=== PATIENT | female | born 1955 | race Caucasian/White ===

== ENCOUNTER 2017-07-10 11:04 | Observation (INO) | payer BC ==
[~2017-07-10] VITALS: Ht 172.7 cm; Wt 52.6 kg
[~2017-07-10 11:04] MED LIST: ANTIDEPRESSANT PO; DEPO-MEDROL80 MG/ML IM; NAPROXEN500 MG PO; PAXIL40 MG PO; PERCOCET 5/325M1 TAB PO; PROAIR HFA IN; SYNTHROID100 MCG OR; SYNTHROID100 MCG PO; SYNTHROID125 MCG PO; VENTOLIN HFA IN; WELLBUTRIN SR150 MG PO
[2017-07-10] MEDS ORDERED: IBUPROFEN200 MG PO (11:22)
[2017-07-10] MEDS ORDERED: APAP/HYDRO325 MG/10 PO (11:36)
[2017-07-10] MEDS ORDERED: PAROXETINE HCL40 MG PO (11:37)
[2017-07-10] MEDS ORDERED: LEVOTHYROXIN125 MC1 PO (11:38)
[2017-07-10 12:26] LABS: HEMATOCRIT 39.5 % (37.0-47.0); IMMATURE GRANULOCYTES 0.1 % (0.0-1.0); MEAN CELL VOLUME 100.5 fL CALC (80.0-100.0); MEAN CORPUSCULAR HGB 33.1 pG CALC (26.0-32.0); MEAN CORPUSCULAR HGB CONC 32.9 g/L CALC (32.0-36.0); NEUT# 3.42 thou/uL (2.00-7.15); RED BLOOD COUNT 3.93 mill/uL (4.20-5.60); RED CELL DISTRI WIDTH 12.5 % (11.5-15.5)
[2017-07-10 12:44] LABS: ALBUMIN 4.2 g/dL (3.2-5.0); ALKALINE PHOSPHATASE 84 u/l (38-126); ANION GAP 13 (6-22 (CALC)); BILIRUBIN, TOTAL 0.3 mg/dL (0.0-1.4); BUN 11 mg/dL (8-23); BUN/CREATININE RATIO 15 (12-20 (CALC)); CALCIUM 9.4 mg/dL (8.4-10.2); CARBON DIOXIDE 25 mmol/l (22-30); CHLORIDE 110 mmol/l (95-108); CREATININE 0.7 mg/dL (0.5-1.0); GFR > 60 ML/MIN (>=60 (CALC)); GFR FOR AFR.AMER. > 60 ML/MIN (>=60 (CALC)); GLUCOSE 108 mg/dL (82-115); POTASSIUM 3.5 mmol/l (3.5-5.1); SGOT/AST 25 u/l (9-36); SGPT/ALT 24 u/l (11-66); SODIUM 144 mmol/l (137-146); TOTAL PROTEIN 6.9 g/dL (6.3-8.2)
[2017-07-10 12:56] LABS: MYOGLOBIN 38 ng/mL (0 - 62)
[2017-07-10 13:20] LABS: URINE BILIRUBIN - DIPSTICK NEGATIVE (NEGATIVE); URINE BLOOD DIPSTICK NEGATIVE (NEGATIVE); URINE COLOR YELLOW; URINE GLUCOSE - DIPSTICK NEGATIVE (NEGATIVE); URINE KETONE NEGATIVE (NEGATIVE); URINE LEUK ESTERASE NEGATIVE (NEGATIVE); URINE NITRITE - DIPSTICK NEGATIVE (Negative); URINE PROTEIN - DIPSTICK NEGATIVE (NEG-TRACE); URINE SPECIFIC GRAVITY <=1.005; URINE UROBILINOGEN - DIPSTICK 0.2 E.U./dL (0.2)
[2017-07-10 13:27] LABS: URINE CLARITY CLEAR
[2017-07-10 16:30] VITALS: BP 132/79
[2017-07-10 19:48] VITALS: BP 125/74
[2017-07-11 00:15] VITALS: BP 133/65
[2017-07-11 04:32] VITALS: BP 127/76
[2017-07-11 06:05] LABS: HEMATOCRIT 40.9 % (37.0-47.0); HEMOGLOBIN 13.7 g/dl (12.0-16.0); MEAN CORPUSCULAR HGB 33.2 pG CALC (26.0-32.0); MEAN CORPUSCULAR HGB CONC 33.5 g/L CALC (32.0-36.0); RED BLOOD COUNT 4.13 mill/uL (4.20-5.60); RED CELL DISTRI WIDTH 12.5 % (11.5-15.5)
[2017-07-11 06:12] LABS: ANION GAP 12 (6-22 (CALC)); BUN 9 mg/dL (8-23); BUN/CREATININE RATIO 14 (12-20 (CALC)); CALCIUM 9.8 mg/dL (8.4-10.2); CALCULATED LDLCHOLESTEROL 87 mg/dL (62-129 (CALC)); CARBON DIOXIDE 27 mmol/l (22-30); CHLORIDE 108 mmol/l (95-108); CHOLESTEROL HDL RATIO 2.8 (<4.4 (CALC)); CREATININE 0.7 mg/dL (0.5-1.0); GFR > 60 ML/MIN (>=60 (CALC)); GFR FOR AFR.AMER. > 60 ML/MIN (>=60 (CALC)); GLUCOSE 89 mg/dL (82-115); HDL CHOLESTEROL 62 mg/dL (>=40); POTASSIUM 4.3 mmol/l (3.5-5.1); SODIUM 143 mmol/l (137-146); TOTAL CHOLESTEROL 171 mg/dl (0-199); TOTAL TRIGLYCERIDES 108 mg/dl (30-149); VLDL CHOLESTROL 22 mg/dl (1-41 (CALC))
[2017-07-11 07:44] VITALS: BP 128/77
[2017-07-11] MEDS ORDERED: ADLT ASA LOW81 MG PO (13:06)
[2017-07-11] MEDS ORDERED: ROBAXIN-750750 MG PO (13:07)
== END 2017-07-11 14:55 | disposition home or self-care (01) | DRG 206 ==
LOC: ED 11:04 → ED-I 13:14 → ED 14:29 → MS2 14:30
PROVIDERS: Emergency Medicine; ADMIT Internal Medicine; ATTEND Internal Medicine
DX: M94.0 Chondrocostal junction syndrome [Tietze] (principal); M54.2 Cervicalgia; E03.9 Hypothyroidism, unspecified; F17.210 Nicotine dependence, cigarettes, uncomplicated
CPT/HCPCS: G0378

== ENCOUNTER 2022-11-05 17:12 | Emergency (ER) | payer MEDICARE ==
[2022-11-05] VITALS (7 sets, daily range): BP systolic 91–127; BP diastolic 60–104
[~2022-11-05] VITALS: Ht 172.7 cm; Wt 48.9 kg
[~2022-11-05 17:12] MED LIST changes: +ADLT ASA LOW81 MG PO; +APAP/HYDRO325 MG/10 PO; +IBUPROFEN200 MG PO; +LEVOTHYROXIN125 MC1 PO; +PAROXETINE HCL40 MG PO; +ROBAXIN-750750 MG PO
[2022-11-05] MEDS ORDERED: FLEXERIL5 M1 PO (19:41)
[2022-11-05] MEDS ORDERED: PERCOCET 5/321 COMBO PO ×2 (19:41→20:14)
== END 2022-11-05 19:52 | disposition home or self-care (01) ==
LOC: ED 17:12
DX: M54.2 Cervicalgia (principal); R07.81 Pleurodynia; J44.9 Chronic obstructive pulmonary disease, unspecified; E05.90 Thyrotoxicosis, unspecified without thyrotoxic crisis or storm; F17.200 Nicotine dependence, unspecified, uncomplicated; Z99.81 Dependence on supplemental oxygen